=== PATIENT | female | born 1960 | race Caucasian/White ===

== ENCOUNTER 2017-06-15 21:27 | Emergency (ER) | payer OTHER ==
[2017-06-15] MEDS ORDERED: Sodium Chloride 0.9% 1000 ML 1,000 ML IV STA (21:50)
[2017-06-15] MEDS ORDERED: Zofran 4 MG/2 ML VIAL IV ONE (21:50)
--- NOTE | 2017-06-15 21:50 | ERPHSYRPT ---
- History of Present Illness Time Seen by Provider: 06/15/17 21:47 Source: patient, EMS Exam Limitations: no limitations Patient Subjective Stated Complaint: slid of a full size horse and when she hit the ground her right ankle twisted and snapped -she was unable to tolerate ambulation afterward Triage Nursing Assessment: pt is awake and alert and able to answer questions - there is swelling to the ankle and pain with movement Physician History: pt slipped getting off her hrose and twisted right ankle and unable to bear weight; denies any other injuries at this time; Method of Injury: fell, sports injury, twisted Occurred: just prior to arrival Quality: constant, sharpness, throbbing Severity of Pain-Max: moderate Severity of Pain-Current: moderate Lower Extremities Pain: ankle: right Modifying Factors: Improves With: cold therapy, immobilization, movement, rest Associated Symptoms: unable to bear weight, snapping sensation, popping sensation Allergies/Adverse Reactions: cephalexin monohydrate [From Keflex] Allergy (Intermediate, Verified 06/15/17 21 :39) Nausea "gut troubles" morphine Allergy (Mild, Verified 06/15/17 21:39) Hives Home Medications: Alprazolam [Xanax] 1 tab PO TID 05/20/15 [History] Dicyclomine HCl [Bentyl] 10 mg PO TID 05/25/16 [History] Estrogen,Mayuri/Me-Testosterone [Eemt Hs 0.625-1.25 mg Tablet] 1 ea PO HS [History] Fluticasone Propionate [Flovent Diskus] 50 mcg IH DAILY 05/25/16 [History] Linaclotide [Linzess] 145 mcg PO DAILY 05/25/16 [History] Loratadine 10 mg [Claritin 10 mg] 10 mg PO DAILY 05/25/16 [History] Venlafaxine HCl ER 75 mg [Effexor XR 75 MG] 75 mg PO DAILY 05/25/16 [ History] Hx Tetanus, Diphtheria Vaccination/Date Given: No Hx Influenza Vaccination/Date Given: No Hx Pneumococcal Vaccination/Date Given: No Immunizations Up to Date: Yes - Review of Systems Constitutional: No Fever, No Chills Eyes: No Symptoms Ears, Nose, & Throat: No Symptoms Respiratory: No Cough, No Dyspnea Cardiac: No Chest Pain, No Edema, No Syncope Abdominal/Gastrointestinal: No Abdominal Pain, No Nausea, No Vomiting, No Diarrhea Genitourinary Symptoms: No Dysuria Musculoskeletal: Injury, Joint Pain, Joint Swelling, No Back Pain, No Neck Pain Skin: No Rash Neurological: No Dizziness, No Focal Weakness, No Sensory Changes Psychological: No Symptoms Endocrine: No Symptoms All Other Systems: Reviewed and Negative - Past Medical History Pertinent Past Medical History: Yes Neurological History: No Pertinent History ENT History: No Pertinent History Cardiac History: No Pertinent History Respiratory History: Other Endocrine Medical History: No Pertinent History Musculoskeletal History: No Pertinent History GI Medical History: Other History: No Pertinent History Psycho-Social History: Anxiety, Depression Female Reproductive Disorders: Other Other Medical History: states low abd pain,hx of cervical freezing reason unkn own - Past Surgical History Past Surgical History: Yes Neuro Surgical History: No Pertinent History Cardiac: No Pertinent History Respiratory: No Pertinent History Gastrointestinal: No Pertinent History Genitourinary: Other Musculoskeletal: Orthopedic Surgery Female Surgical History: Hysterectomy Other Surgical History: right shoulder bone spurs,right knee patella release,hx of fx left side collar bone, "bladder sling" - Social History Smoking Status: Current every day smoker How long have you smoked: 30 Exposure to second hand smoke: Yes Drug Use: none Patient Lives Alone: No - Female History Hx Last Menstrual Period: na - Nursing Vital Signs Nursing Vital Signs: Pain Scale Pain Intensity 9 - Physical Exam General Appearance: alert Eyes, Ears, Nose, Throat Exam: moist mucous membranes Neck Exam: non-tender, supple Cardiovascular/Respiratory Exam: chest non-tender, normal breath sounds, regular rate/rhythm, no respiratory distress Gastrointestinal/Abdominal Exam: non-tender, guarding Back Exam: normal inspection, No vertebral tenderness Hips Exam: bilateral: non-tender, normal inspection, normal range of motion, no evidence of injury Legs Exam: bilateral leg: non-tender, normal inspection, normal range of motion , no evidence of injury Knees Exam: bilateral knee: non-tender, normal inspection, normal range of motion, no evidence of injury Ankle Exam: right ankle: bone tenderness, ecchymosis, joint effusion, limited range of motion, pain, soft tissue tenderness, left ankle: non-tender, normal inspection, normal range of motion, no evidence of injury Foot Exam: bilateral foot: non-tender, normal inspection, normal range of motion , no evidence of injury DTR - Lower Extremities Exam: knee (R): 2+, knee (L): 2+, ankle (R): 2+, ankle ( L): 2+ Neuro/Tendon Exam: normal sensation, normal motor functions Mental Status Exam: alert, oriented x 3, cooperative Skin Exam: normal color, warm, dry - Course Nursing assessment & vital signs reviewed: Yes - Radiology Exams Right Lower Leg X-ray Interpretation: Reviewed by me, Displaced Fracture (distal tib and prox fib) Pelvis X-ray Interpretation: Reviewed by me, Other (no obvious fracture - sending for read ) Ordered Tests: Active Orders 24 hr Category Date Time Status NPO (ED) STAT Care 06/15/17 21:50 Active ANKLE (3 VIEWS) Stat Exams 06/15/17 21:51 Completed LOWER LEG Stat Exams 06/15/17 21:52 Completed PELVIS (1 OR 2 VIEWS) Stat Exams 06/15/17 22:30 Taken Medication Summary Discontinued Medications Generic Name Dose Route Start Last Admin Trade Name Freq PRN Reason Stop Dose Admin Diphenhydramine HCl 25 mg 06/15/17 21:54 06/15/17 22:11 Benadryl 50 Mg/Ml IV 06/15/17 21:55 Not Given STAT ONE Diphenhydramine HCl Confirm 06/15/17 22:03 Benadryl 50 Mg/Ml Administered 06/15/17 22:04 Dose 50 mg .ROUTE .STK-MED ONE Hydromorphone HCl 0.5 mg 06/15/17 21:54 06/15/17 22:15 Hydromorphone 1 Mg/Ml Ampule IV 06/15/17 21:55 Not Given STAT ONE Hydromorphone HCl Confirm 06/15/17 22:04 Hydromorphone 1 Mg/Ml Ampule Administered 06/15/17 22:05 Dose 1 mg .ROUTE .STK-MED ONE Sodium Chloride 1,000 mls @ 999 mls/hr 06/15/17 21:50 06/15/17 22:10 Sodium Chloride 0.9% 1000 Ml IV 06/15/17 22:50 999 mls/hr .Q1H1M STA Administration Sodium Chloride Confirm 06/15/17 22:04 Sodium Chloride 0.9% 1000 Ml Administered 06/15/17 22:05 Dose 1,000 mls @ ud .ROUTE .STK-MED ONE Ondansetron HCl 4 mg 06/15/17 21:50 06/15/17 22:12 Zofran 4 Mg/2 Ml Vial IV 06/15/17 21:51 4 mg STAT ONE Administration Ondansetron HCl Confirm 06/15/17 22:03 Zofran 4 Mg/2 Ml Vial Administered 06/15/17 22:04 Dose 4 mg .ROUTE .STK-MED ONE - Progress Progress: improved, re-examined Progress Note: 06/15/17 21:55 pt just has itching with morphine , she states not true allergy, and wishes to try dilaudid; 06/15/17 22:[address] ER at [facility] and will accept in transfer for definitive ortho Discussed with : Other ([facility] ER ) Will see patient in: hospital (full admit) Counseled pt/family regarding: diagnosis, need for follow-up, rad results - Departure Time of Disposition: 22:57 Departure Disposition: Transfer Clinical Impression: fracture prox fibula, distal tibia Condition: Good Critical Care Time: No Referrals: MICHELLE GARCIA MD [Primary Care Provider] - Instructions: Ankle Fracture
[2017-06-15] MEDS ORDERED: BENADRYL 50 MG/ML ONE (22:03)
[2017-06-15] MEDS ORDERED: Zofran 4 MG/2 ML VIAL ONE (22:03)
[2017-06-15] MEDS ORDERED: Hydromorphone 1 mg/ml Ampule ONE (22:04)
[2017-06-15] MEDS ORDERED: Sodium Chloride 0.9% 1000 ML 1,000 ML ONE (22:04)
[2017-06-15] MEDS: BENADRYL 50 MG/ML IV ONE ×2 (22:10→22:11)
[2017-06-15] MEDS: Hydromorphone 1 mg/ml Ampule IV ONE ×2 (22:10→22:15)
--- NOTE | 2017-06-15 22:40 | XRAY ---
Indication: Pain following horse injury. Comparison: None 3 views of the right ankle demonstrates mild displaced oblique fracture involving the distal tibial shaft with soft tissue swelling. No other bony, articular, or soft tissue abnormalities.
--- NOTE | 2017-06-15 22:41 | XRAY ---
Indication: Pain following horse injury. Comparison: None 2 views of the right lower leg demonstrates mild displaced oblique fracture involving the distal tibial shaft with soft tissue swelling. No other bony, articular, or soft tissue abnormalities.
[2017-06-15 22:54] VITALS: BP 139/98; PULSE 78; O2SAT 97
--- NOTE | 2017-06-16 07:48 | XRAY ---
Indication: Pain following fall/injury. Comparison: None Single AP pelvis obtained. No bony, articular, or soft tissue abnormalities. Comment: Preliminary interpretation was made by [facility]. No discrepancy.
== END 2017-06-15 23:55 | disposition short-term general hospital (02) ==
LOC: ED 21:27
PROC: 2W3LX1Z Immobilization of Right Lower Extremity using Splint (ICD-10-PCS; principal; 2017-06-15)
DX: S82.401A Unspecified fracture of shaft of right fibula, initial encounter for closed fracture (principal); S82.301A Unspecified fracture of lower end of right tibia, initial encounter for closed fracture; V80.010A Animal-rider injured by fall from or being thrown from horse in noncollision accident, initial encounter
CPT/HCPCS: 29505; 72170; 73590; 73610; 96360; 96361; 96374; 96375; 99285; J1170; J1200; J2405